=== PATIENT | male | born 1970 | race Caucasian/White ===

== ENCOUNTER 2017-07-05 17:17 | Emergency (ER) | payer OTHER, BC ==
--- NOTE | 2017-07-05 19:48 | ER Document Report ---
ED Head/Face/Scalp Injury - General Chief Complaint: Head Injury Stated Complaint: HEAD PAIN Time Seen by Provider: 07/05/17 19:11 Notes: 47 yo male presents to ED for possible concussion. pt was pulling thu from a tree when a branch broke loose, swung down and hit him in the head. unsure of LOC. felt dizzy and disoriented. no previous head injury. injury occurred approximately 4h [employer]. no vomiting. + nausea. pt is " little off" per . TRAVEL OUTSIDE OF THE [place] IN LAST 30 DAYS: No - HPI Patient complains to provider of: Injury Injury to: Head Occurred: This afternoon Where: Home Context: Direct blow Loss consciousness: Unsure Remembers: Injury, Coming to hospital - Related Data Allergies/Adverse Reactions: No Known Allergies Allergy (Verified 07/05/17 17:20) Past Medical History - General Information source: Patient, Relative - Social History Smoking Status: Never Smoker Chew tobacco use (# tins/day): No Frequency of alcohol use: None Drug Abuse: None Lives with: Family Family History: Reviewed & Not Pertinent - Medical History Medical History: Negative Renal/ Medical History: Denies: Hx Peritoneal Dialysis Review of Systems - Review of Systems EENT: No symptoms reported Cardiovascular: No symptoms reported Respiratory: No symptoms reported Gastrointestinal: No symptoms reported Genitourinary: No symptoms reported Male Genitourinary: No symptoms reported Musculoskeletal: No symptoms reported Skin: No symptoms reported Hematologic/Lymphatic: No symptoms reported Neurological/Psychological: No symptoms reported Physical Exam - Vital signs Vitals: Temp Pulse Resp BP Pulse Ox 97.4 F 69 14 152/82 H 97 07/05/17 17:19 07/05/17 17:19 07/05/17 17:19 07/05/17 17:19 07/05/17 17:19 Interpretation: Normal - General General appearance: Appears well, Alert - HEENT Head: Normocephalic, Abrasions - + abrasion to right lateral nose Eyes: Normal Pupils: PERRL Tympanic membrane: Normal Pharynx: Normal. No: Potential airway comprom. Neck: Normal, Supple - no cervical tenderness - Respiratory Respiratory status: No respiratory distress Chest status: Nontender Breath sounds: Normal Chest palpation: Normal - Cardiovascular Rhythm: Regular Heart sounds: Normal auscultation Murmur: No - Abdominal Inspection: Normal Distension: No distension Bowel sounds: Normal Tenderness: Nontender Organomegaly: No organomegaly - Back Back: Normal, Nontender - Extremities General upper extremity: Normal inspection, Nontender, Normal color, Normal ROM , Normal temperature General lower extremity: Normal inspection, Nontender, Normal color, Normal ROM , Normal temperature, Normal weight bearing. No: Malorie's sign - Neurological Neuro grossly intact: Yes Cognition: Normal Orientation: AAOx4 [place] Coma Scale Eye Opening: Spontaneous [place] Coma Scale Verbal: Oriented [place] Coma Scale Motor: Obeys Commands [place] Coma Scale Total: 15 Speech: Normal Motor strength normal: LUE, RUE, LLE, RLE Sensory: Normal - Psychological Associated symptoms: Normal affect, Normal mood - Skin Skin Temperature: Warm Skin Moisture: Dry Skin Color: Normal Course - Re-evaluation Re-evalutation: 07/05/17 20:[address] negative. results reviewed with patient and . pt is neurologically intact. reviewed head injury precautions with pt and . pt is stable for discharge. - Vital Signs Vital signs: Temp Pulse Resp BP Pulse Ox 97.4 F 69 14 152/82 H 97 07/05/17 17:19 07/05/17 17:19 07/05/17 17:19 07/05/17 17:19 07/05/17 17:19 Discharge - Discharge Clinical Impression: Head injury Qualifiers: Encounter type: initial encounter Qualified Code(s): S09.90XA - Unspecified injury of head, initial encounter Facial contusion Qualifiers: Encounter type: initial encounter Qualified Code(s): S00.83XA - Contusion of other part of head, initial encounter Condition: Stable Disposition: HOME, SELF-CARE Instructions: Head Injury Precautions ([facility]), Acetaminophen Additional Instructions: Your head head CT was negative today Tylenol for discomfort, headache Please observe closely for head injury precautions as discussed Return to ER for any worsening Forms: Elevated Blood Pressure
--- NOTE | 2017-07-05 20:33 | RADIOLOGY REPORT (SQ) ---
EXAM DESCRIPTION: CT HEAD WITHOUT COMPLETED DATE/TIME: 07/05/2017 8:15 pm REASON FOR STUDY: hit in head with tree branch COMPARISON: None. TECHNIQUE: Axial images acquired through the brain without intravenous contrast. Images reviewed wi th bone, brain and subdural windows. Images stored on PACS. All CT scanners at this facility use dose modulation, iterative reconstruction, and/or weight based d osing when appropriate to reduce radiation dose to as low as reasonably achievable (ALARA). [facility]: Dose Right [facility]: CareDose [facility]: Dose Right [facility]: Teradose 4D [facility]: Smart eDreams [employer] RADIATION DOSE: Up-to-date CT equipment and radiation dose reduction techniques were employed. CTDIv ol: 64.6 mGy. DLP: 1034 mGy-cm. mGy. LIMITATIONS: None. FINDINGS: VENTRICLES: Normal size and contour. CEREBRUM: No masses. No hemorrhage. No midline shift. No evidence for acute infarction. Normal gra y/white matter differentiation. No areas of low density in the white matter. CEREBELLUM: No masses. No hemorrhage. No alteration of density. No evidence for acute infarction. EXTRAAXIAL SPACES: No fluid collections. No masses. ORBITS AND GLOBE: No intra- or extraconal masses. Normal contour of globe without masses. CALVARIUM: No fracture. PARANASAL SINUSES: No fluid or mucosal thickening. SOFT TISSUES: No mass or hematoma. OTHER: No other significant finding. IMPRESSION: NORMAL BRAIN CT WITHOUT CONTRAST. EVIDENCE OF ACUTE STROKE: NO. COMMENT: Quality ID # [id number]: Final reports with documentation of one or more dose reduction techniques (e.g., Automated exposure control, adjustment of the mA and/or kV according to patient size, use of iterative reconstruction technique) TECHNICAL DOCUMENTATION: JOB ID: [id number] 1880[employer]- All Rights Reserved
[2017-07-05 20:52] VITALS: BP 148/75
== END 2017-07-05 20:55 | disposition home or self-care (01) ==
LOC: ER 17:17
DX: S09.90XA Unspecified injury of head, initial encounter (principal); S00.83XA Contusion of other part of head, initial encounter; R42 Dizziness and giddiness; R11.0 Nausea; W22.8XXA Striking against or struck by other objects, initial encounter
CPT/HCPCS: 70450; 99283